=== PATIENT | female | born 1980 | race Caucasian/White ===

== ENCOUNTER 2018-08-14 23:26 | Inpatient (IN) | payer SELFPAY ==
[~2018-08-14] VITALS: Ht 165.1 cm; Wt 86.6 kg
[2018-08-15] VITALS (54 sets, daily range): BP systolic 83–155; BP diastolic 48–105
[2018-08-15] MEDS ORDERED: ACETAMINOPHEN 325MG TABLET PO STA (01:03)
[2018-08-15] MEDS ORDERED: SODIUM CHLORIDE 0.9% 1,000 ML IV ONE (01:03)
[2018-08-15 01:37] LABS: BASOPHILS % 0.2 % (0.0-2.0); EOSINOPHILS % 0.2 % (0.0-5.0); HEMATOCRIT. 49.1 % (36.0-48.0); HEMOGLOBIN. 17.2 g/dL (12.0-16.0); LYMPHOCYTES % 10.8 % (20.0-50.0); MEAN CORPUSCULAR VOLUME 94.1 fL (81.0-99.0); MEAN PLATELET VOLUME 7.8 fl (7.4-10.4); MONOCYTES % 4.4 % (2.0-8.0); NEUTROPHILS % 84.4 % (40.0-76.0); PLATELET 243 x1000/uL (130-400); RED BLOOD CELL COUNT 5.22 mill/uL (4.2-5.4); RED CELL DISTRIBUTION WIDTH 12.9 % (11.6-14.6)
[2018-08-15 01:39] LABS: CHLORIDE 100 mEq/L (98-107)
[2018-08-15] MEDS ORDERED: NITROGLYCERIN 50MG PREMIX 250 ML IV ONE (03:45)
[2018-08-15] MEDS ORDERED: HEPARIN 5000 UNITS/ML VIAL IV ONE (03:45)
[2018-08-15] MEDS ORDERED: HEPARIN 25,000 UNITS PREMIX 500 ML IV ONE (03:45)
[2018-08-15] MEDS ORDERED: HEPARIN 25,000 UNITS PREMIX 500 ML IV PRN (05:15)
[2018-08-15] MEDS ORDERED: MORPHINE SULFATE 2 MG/ML CPJ (NOT FOR IM USE) IV PRN (05:15)
[2018-08-15] MEDS ORDERED: HEPARIN 5000 UNITS/ML VIAL IV PRN ×2 (05:15)
[2018-08-15] MEDS ORDERED: ACETAMINOPHEN 325MG TABLET PO PRN ×3 (05:15→13:00)
[2018-08-15] MEDS ORDERED: NITROGLYCERIN 50MG PREMIX 250 ML IV PRN (05:15)
[2018-08-15] MEDS ORDERED: HEPARIN BOLUS PRN aPTT 30-44 IV (06:15)
[2018-08-15] MEDS ORDERED: HEPARIN BOLUS PRN aPTT <30 IV (06:15)
[2018-08-15 08:39] LABS: CHLORIDE 103 mEq/L (98-107)
[2018-08-15 08:43] LABS: CLARITY URINE CLEAR (CLEAR); COLOR URINE YELLOW (YELLOW); KETONES URINE NEGATIVE (NEGATIVE); LEUKOCYTE ESTERASE URINE NEGATIVE (NEGATIVE); NITRITE URINE NEGATIVE (NEGATIVE); OCCULT BLOOD URINE NEGATIVE (NEGATIVE); PH URINE 7.5 (4.5-8.0); PROTEIN URINE NEGATIVE (NEGATIVE)
[2018-08-15 08:43] LABS: BASOPHILS % 0.2 % (0.0-2.0); EOSINOPHILS % 0.1 % (0.0-5.0); HEMATOCRIT. 45.7 % (36.0-48.0); HEMOGLOBIN. 15.8 g/dL (12.0-16.0); LYMPHOCYTES % 14.8 % (20.0-50.0); MEAN CORPUSCULAR HEMOGLOBIN 32.6 pg (28.0-32.0); MEAN CORPUSCULAR VOLUME 94.5 fL (81.0-99.0); MEAN PLATELET VOLUME 8.2 fl (7.4-10.4); MONOCYTES % 6.3 % (2.0-8.0); NEUTROPHILS % 78.6 % (40.0-76.0); PLATELET 204 x1000/uL (130-400); RED BLOOD CELL COUNT 4.84 mill/uL (4.2-5.4)
[2018-08-15 08:45] LABS: PHOSPHORUS 3.5 mg/dL (2.5-4.9)
[2018-08-15] MEDS ORDERED: ASPIRIN 325MG TABLET PO SCH (09:00)
[2018-08-15 09:13] LABS: *AMPHETAMINES SCREEN URINE NEGATIVE (NEGATIVE); *BARBITURATES SCREEN URINE NEGATIVE (NEGATIVE); *COCAINE SCREEN URINE NEGATIVE (NEGATIVE)
[2018-08-15 09:14] LABS: *BENZODIAZEPINES SCREEN URINE NEGATIVE (NEGATIVE); METHADONE URINE SCREEN NEGATIVE (NEGATIVE)
[2018-08-15 09:15] LABS: CANNABINOID URINE SCREEN NEGATIVE (NEGATIVE); PHENCYCLIDINE URINE SCREEN NEGATIVE (NEGATIVE)
[2018-08-15] MEDS ORDERED: ONDANSETRON HCL 4MG/2ML INJ IV PRN (09:15)
[2018-08-15 09:24] LABS: OPIATES URINE SCREEN PRESUMTIVE POSITIVE (NEGATIVE)
[2018-08-15 10:29] LABS: CREATINE KINASE 791 IU/L (26-192)
[2018-08-15] MEDS: SODIUM CHLORIDE 0.9% 1,000 ML IV SCH ×2 (11:51→23:57)
[2018-08-15] MEDS: HYDROCODONE/ACETAMINOPHEN 5/325MG TABLET PO PRN ×2 (13:31→23:59)
[2018-08-15] MEDS: ASPIRIN 81MG TABLET PO SCH (15:22)
[2018-08-15] MEDS ORDERED: METOPROLOL TARTRATE 25MG TABLET PO SCH (21:00)
[2018-08-16] VITALS (33 sets, daily range): BP systolic 93–127; BP diastolic 44–89
[2018-08-16 06:02] LABS: BASOPHILS % 0.3 % (0.0-2.0); EOSINOPHILS % 0.4 % (0.0-5.0); MEAN CORPUSCULAR HEMOGLOBIN 33.3 pg (28.0-32.0); MEAN CORPUSCULAR VOLUME 93.6 fL (81.0-99.0); MEAN PLATELET VOLUME 8.1 fl (7.4-10.4); MONOCYTES % 6.8 % (2.0-8.0); NEUTROPHILS % 72.5 % (40.0-76.0); PLATELET 218 x1000/uL (130-400); RED BLOOD CELL COUNT 4.81 mill/uL (4.2-5.4); RED CELL DISTRIBUTION WIDTH 13.2 % (11.6-14.6)
[2018-08-16 06:18] LABS: CHLORIDE 105 mEq/L (98-107)
[2018-08-16 06:29] LABS: CREATINE KINASE 647 IU/L (26-192)
[2018-08-16] MEDS ORDERED: ASPIRIN 81MG TABLET PO SCH (09:00)
[2018-08-16] MEDS ORDERED: METOPROLOL TARTRATE 50MG TABLET PO SCH (09:00)
[2018-08-16] MEDS: ASPIRIN 81MG TABLET PO SCH (09:08)
[2018-08-16] MEDS: HYDROCODONE/ACETAMINOPHEN 5/325MG TABLET PO PRN (09:42)
[2018-08-16] MEDS: SODIUM CHLORIDE 0.9% 1,000 ML IV SCH (13:49)
== END 2018-08-16 19:00 | disposition short-term general hospital (02) | DRG 566 ==
LOC: ER 23:26 → CVICU 08-15 03:40 → EDBEDREQSVC 08-15 03:42 → EDBEDREQ 08-15 03:42 → EDBEDREQTM 08-15 03:42 → ENRESERV 08-15 03:50
PROVIDERS: ADMIT Internal Medicine; ATTEND Internal Medicine
DX: O99.411 Diseases of the circulatory system complicating pregnancy, first trimester (principal); I21.4 Non-ST elevation (NSTEMI) myocardial infarction; I42.9 Cardiomyopathy, unspecified; I50.22 Chronic systolic (congestive) heart failure; M62.82 Rhabdomyolysis; O20.8 Other hemorrhage in early pregnancy; I25.10 Atherosclerotic heart disease of native coronary artery without angina pectoris; N83.201 Unspecified ovarian cyst, right side; O34.81 Maternal care for other abnormalities of pelvic organs, first trimester; O26.891 Other specified pregnancy related conditions, first trimester; D72.829 Elevated white blood cell count, unspecified; O34.219 Maternal care for unspecified type scar from previous cesarean delivery; Z3A.01 Less than 8 weeks gestation of pregnancy
CPT/HCPCS: 36415; 76801; 80048; 80305; 82550; 83735; 83880; 84100; 84145; 84484; 84702; 85379; 93005; 93306; 93970; 93971; 96374; 99285; J1644; J2270; J2405; J3490; J7030

== ENCOUNTER 2019-08-28 23:09 | Inpatient (IN) | payer MEDICAID, OTHER ==
[~2019-08-28] VITALS: Ht 165.1 cm; Wt 79.8 kg
[2019-08-29] MEDS ORDERED: FUROSEMIDE 40MG/4ML VIAL IV ONE (00:45)
[2019-08-29 01:02] LABS: BASOPHILS % 0.7 % (0.0-2.0); EOSINOPHILS % 0.7 % (0.0-5.0); LYMPHOCYTES % 34.8 % (20.0-50.0); MEAN CORPUSCULAR HEMOGLOBIN 32.1 pg (28.0-32.0); MEAN CORPUSCULAR VOLUME 93.9 fL (81.0-99.0); MEAN PLATELET VOLUME 8.5 fl (7.4-10.4); MONOCYTES % 5.3 % (2.0-8.0); NEUTROPHILS % 58.5 % (40.0-76.0); PLATELET 308 x1000/uL (130-400); RED BLOOD CELL COUNT 4.37 mill/uL (4.2-5.4); RED CELL DISTRIBUTION WIDTH 13.6 % (11.6-14.6)
[2019-08-29 01:07] LABS: CHLORIDE 106 mEq/L (98-107)
[2019-08-29] MEDS ORDERED: ASPIRIN 325MG TABLET PO NR (03:30)
[2019-08-29 08:10] VITALS: BP 124/95
[2019-08-29] MEDS ORDERED: ONDANSETRON HCL 4MG/2ML INJ IV PRN (09:45)
[2019-08-29] MEDS ORDERED: ACETAMINOPHEN 325MG TABLET PO PRN (09:45)
[2019-08-29] MEDS ORDERED: ENOXAPARIN 40MG/0.4ML SYR SUBCUT SCH (10:00)
[2019-08-29] MEDS: CARVEDILOL 12.5MG TABLET PO SCH ×2 (10:05→20:44)
[2019-08-29] MEDS: LOSARTAN POTASSIUM 25 MG TABLET PO SCH (10:05)
[2019-08-29 11:43] VITALS: BP 117/92
[2019-08-29 13:22] LABS: CREATINE KINASE MB FRACTION 3.5 ng/mL (0.5-3.6)
[2019-08-29 14:43] LABS: *BARBITURATES SCREEN URINE NEGATIVE (NEGATIVE); *COCAINE SCREEN URINE NEGATIVE (NEGATIVE); METHADONE URINE SCREEN NEGATIVE (NEGATIVE); OPIATES URINE SCREEN NEGATIVE (NEGATIVE)
[2019-08-29 14:44] LABS: *AMPHETAMINES SCREEN URINE PRESUMTIVE POSITIVE (NEGATIVE); *BENZODIAZEPINES SCREEN URINE NEGATIVE (NEGATIVE); CANNABINOID URINE SCREEN NEGATIVE (NEGATIVE); PHENCYCLIDINE URINE SCREEN NEGATIVE (NEGATIVE)
[2019-08-29 16:08] VITALS: BP 86/57
[2019-08-29 20:14] VITALS: BP 155/111
[2019-08-29] MEDS: ENOXAPARIN 80MG/0.8ML SYR SUBCUT SCH (20:45)
[2019-08-29] MEDS ORDERED: METOPROLOL TARTRATE 50MG TABLET PO SCH (21:00)
[2019-08-30 00:28] VITALS: BP 94/66
[2019-08-30 04:49] VITALS: BP 109/67
[2019-08-30 07:19] LABS: INR 1.1; PROTHROMBIN TIME 11.6 sec (9.6-11.0)
[2019-08-30] MEDS ORDERED: FUROSEMIDE 40MG/4ML VIAL IVP SCH (07:45)
[2019-08-30 07:50] LABS: CHLORIDE 104 mEq/L (98-107)
[2019-08-30] MEDS ORDERED: MORPHINE SULFATE 2 MG/ML CPJ (NOT FOR IM USE) IV PRN (08:30)
[2019-08-30 08:35] VITALS: BP 90/62
[2019-08-30] MEDS: CARVEDILOL 12.5MG TABLET PO SCH ×2 (08:50→21:00)
[2019-08-30] MEDS: LOSARTAN POTASSIUM 25 MG TABLET PO SCH (08:50)
[2019-08-30] MEDS: ENOXAPARIN 80MG/0.8ML SYR SUBCUT SCH ×2 (09:21→21:03)
[2019-08-30 11:52] VITALS: BP 104/43
[2019-08-30] MEDS: KETOROLAC 30MG/ML VIAL IV PRN (13:51)
[2019-08-30 15:48] VITALS: BP 93/67
[2019-08-30] MEDS ORDERED: WARFARIN SODIUM 7.5MG TABLET PO SCH (18:00)
[2019-08-30 20:00] VITALS: BP 98/63
[2019-08-31] VITALS: BP 104/76
[2019-08-31] MEDS: KETOROLAC 30MG/ML VIAL IV PRN (00:21)
[2019-08-31 04:00] VITALS: BP 95/66
[2019-08-31 06:30] LABS: INR 1.2
[2019-08-31 08:00] VITALS: BP 112/80
[2019-08-31] MEDS: CARVEDILOL 12.5MG TABLET PO SCH ×2 (09:40→21:00)
[2019-08-31] MEDS: ENOXAPARIN 80MG/0.8ML SYR SUBCUT SCH ×2 (09:40→21:25)
[2019-08-31] MEDS: LOSARTAN POTASSIUM 25 MG TABLET PO SCH (09:40)
[2019-08-31 12:00] VITALS: BP 95/64
[2019-08-31] MEDS ORDERED: WARFARIN SODIUM 5MG TABLET PO SCH (18:00)
[2019-08-31 20:33] VITALS: BP 117/78
[2019-09-01 00:42] VITALS: BP 100/73
[2019-09-01 04:24] VITALS: BP 107/69
[2019-09-01 06:07] LABS: INR 2.6; PROTHROMBIN TIME 27.9 sec (9.6-11.0)
[2019-09-01 08:00] VITALS: BP 102/68
[2019-09-01] MEDS: CARVEDILOL 12.5MG TABLET PO SCH (09:00)
[2019-09-01] MEDS: LOSARTAN POTASSIUM 25 MG TABLET PO SCH (09:00)
[2019-09-01] MEDS: ENOXAPARIN 80MG/0.8ML SYR SUBCUT SCH (09:13)
[2019-09-01 12:00] VITALS: BP 105/70
[2019-09-01] MEDS ORDERED: FUROSEMIDE 40MG/4ML VIAL IVP SCH (12:15)
[2019-09-01 13:23] VITALS: BP 105/70
== END 2019-09-01 15:30 | disposition home or self-care (01) | DRG 133 ==
LOC: ER 23:09 → 6WST 08-29 05:14 → EDBEDREQ 08-29 05:21 → ENRESERV 08-29 07:36
PROVIDERS: ADMIT Internal Medicine; ATTEND Internal Medicine
DX: J96.00 Acute respiratory failure, unspecified whether with hypoxia or hypercapnia (principal); I50.23 Acute on chronic systolic (congestive) heart failure; E44.1 Mild protein-calorie malnutrition; I51.3 Intracardiac thrombosis, not elsewhere classified; F15.20 Other stimulant dependence, uncomplicated; I42.9 Cardiomyopathy, unspecified; R79.89 Other specified abnormal findings of blood chemistry; R91.8 Other nonspecific abnormal finding of lung field; R74.0 Nonspecific elevation of levels of transaminase and lactic acid dehydrogenase [LDH]; Z91.19 Patient's noncompliance with other medical treatment and regimen; Z68.29 Body mass index [BMI] 29.0-29.9, adult; Z71.51 Drug abuse counseling and surveillance of drug abuser
CPT/HCPCS: 36415; 71045; 80048; 80053; 80061; 80305; 82550; 82553; 83880; 84443; 84484; 85025; 93005; 93306; 99285; J1650; J1885; J1940; J2270